=== PATIENT | female | born 1985 | race American Indian/Alaskan Native ===

== ENCOUNTER 2023-11-18 09:01 | Emergency (ER) | payer MEDICAID ==
[~2023-11-18] VITALS: Ht 149.9 cm; Wt 71.8 kg
[2023-11-18 09:09] VITALS: TEMP 98.4
[2023-11-18 09:19] LABS: COVID AG,FIA SOURCE NASAL SWAB
[2023-11-18] MEDS: GuaiFENesin/D-METHORPHAN [SUGAR-FREE] 200-20MG/10 ML SYRUP UDCUP PO ONE (09:27)
[2023-11-18] MEDS: ACETAMINOPHEN 500 MG TABLET PO ONE (09:27)
[2023-11-18 09:46] LABS: INFLUENZA TYPE A NEGATIVE FOR TYPE A (NEGATIVE); INFLUENZA TYPE B NEGATIVE FOR TYPE B (NEGATIVE); SARS-COV2 (COVID) ANTIGEN,FIA Negative (Negative)
[2023-11-18] MEDS ORDERED: ALBU18HF12 IH (10:40)
[2023-11-18] MEDS ORDERED: GUAIFDM PO (10:40)
[2023-11-18] MEDS ORDERED: ACET-66 PO (10:40)
[2023-11-18] MEDS ORDERED: DIPH50CA37 PO (10:40)
[2023-11-18 10:57] VITALS: BP 126/67; PULSE 61; RESP 18
== END 2023-11-18 11:01 | disposition home or self-care (01) ==
LOC: EMS 09:01
DX: J20.9 Acute bronchitis, unspecified (principal); J06.9 Acute upper respiratory infection, unspecified; Z90.49 Acquired absence of other specified parts of digestive tract; Z98.890 Other specified postprocedural states; Z20.822 Contact with and (suspected) exposure to COVID-19
CPT/HCPCS: 87804; 99283

== ENCOUNTER 2024-07-16 19:44 | Emergency (ER) | payer MEDICAID ==
[~2024-07-16] VITALS: Ht 149.9 cm; Wt 69.1 kg
[~2024-07-16 19:44] MED LIST: ACET-66 PO; ALBU18HF12 IH; DIPH50CA37 PO; GUAIFDM PO
[2024-07-16 19:45] VITALS: TEMP 98.9
[2024-07-16] MEDS ORDERED: COD30 PO (19:51)
[2024-07-16 20:44] LABS: BASOPHILS % (AUTO) 0.3 % (0.0-2.0); EOSINOPHILS % (AUTO) 2.2 % (1.0-6.0); HEMATOCRIT 38.4 % (36-46); HEMOGLOBIN 12.4 g/dL (12.0-16.0); LYMPHOCYTES # (AUTO) 2.9 K/uL (1.0-4.8); LYMPHOCYTES % (AUTO) 22.9 % (22.0-44.0); MEAN CORPUSCULAR HEMOGLOBIN 26.8 pg (26.0-34.0); MEAN CORPUSCULAR HGB CONC 32.2 G/dL (31.0-37.0); MEAN CORPUSCULAR VOLUME 83 fL (80-100); MONOCYTES % (AUTO) 7.9 % (2.0-9.0); NEUTROPHILS # (AUTO) 8.5 K/uL (1.8-7.7); NEUTROPHILS % (AUTO) 66.7 % (40.0-70.0); PLATELET COUNT (AUTO) 397 K/uL (150-450); RED BLOOD CELL COUNT(AUTO) 4.62 MIL/uL (4.00-5.20); RED CELL DISTRIBUTION WIDTH 13.8 % (11.5-14.5); WHITE BLOOD COUNT (AUTO) 12.8 K/uL (4.5-11.0)
[2024-07-16 20:50] LABS: ANION GAP 9 mmol/L (8-16); CARBON DIOXIDE 27 mmol/L (22-29); CHLORIDE 102 mmol/L (98-107); GLOMERULAR FILTR. RATE CALC > 60 mL/min (>60); GLUCOSE,RANDOM 109 mg/dL (70-110); POTASSIUM 4.1 mmol/L (3.5-5.1); SODIUM SERUM 138 mmol/L (136-145); UREA NITROGEN, BLOOD 14 mg/dL (7-18)
[2024-07-16 21:05] LABS: ALANINE AMINOTRANSFERASE 37 U/L (12-78); ALBUMIN 3.3 g/dL (3.4-5.0); ALKALINE PHOSPHATASE 96 U/L (46-116); ASPARTATE AMINOTRANSFERASE 77 U/L (15-37); BILIRUBIN,TOTAL 0.8 mg/dL (0.1-1.0); HCG,QUANTITATIVE < 1 mIU/mL (0-6); LIPASE 25 U/L (16-77)
[2024-07-16 21:07] VITALS: BP 123/81; PULSE 80; RESP 16; O2SAT 97
[2024-07-16 21:12] LABS: APPEARANCE,URINE CLEAR (CLEAR); BILIRUBIN,URINE NEGATIVE (NEGATIVE); COLOR,URINE YELLOW (YELLOW); GLUCOSE, URINE (UA) TRACE mg/dL (NEGATIVE); LEUKOCYTE ESTERASE ,URINE NEGATIVE (NEGATIVE); NITRATE,URINE NEGATIVE (NEGATIVE); OCCULT BLOOD,URINE TRACE (NEGATIVE); PH,URINE 5.5 (5.0-8.0); PROTEIN,URINE 30-70 mg/dL (NEGATIVE); SPECIFIC GRAVITIY, URINE 1.034 (1.003-1.030); UROBILINOGEN,URINE <=1.0 mg/dL (<=1.0)
[2024-07-16 21:45] LABS: BACTERIA,URINE Moderate /HPF (None Seen); SQUAMOUS EPITHELIAL CELL,UR Moderate /LPF (None Seen)
[2024-07-16 21:46] LABS: MUCUS,URINE Few LPF (None Seen)
[2024-07-16] MEDS: FAMOTIDINE 20 MG/2 ML VIAL IVP ONE (22:49)
[2024-07-16] MEDS: SODIUM CHLORIDE 0.9% 1,000 ML IV ONE (22:49)
[2024-07-16] MEDS ORDERED: FAMO20 PO (23:33)
== END 2024-07-16 23:53 | disposition home or self-care (01) ==
LOC: EMS 19:44
DX: R10.13 Epigastric pain (principal); Z90.49 Acquired absence of other specified parts of digestive tract
CPT/HCPCS: 99285; 96374; 76705; 96361; 80048; 80076; 81001; 83690; 84702; 85025; 87086; 36415; J3490; J7030; 87186